=== PATIENT | male | born 1980 | race American Indian/Alaskan Native ===

== ENCOUNTER 2019-08-20 23:14 | Emergency (ER) | payer SELFPAY ==
[2019-08-20] MEDS ORDERED: ASPIRIN 325 MG TAB PO ONE (23:29)
--- NOTE | 2019-08-21 00:06 | XRay Report ---
CHEST 1 VIEW 11:44 PM INDICATION / CLINICAL INFORMATION: Chest Pain. Left chest pain radiating to the left arm and shoulder. COMPARISON: None available. FINDINGS: SUPPORT DEVICES: None. HEART / MEDIASTINUM: The heart size and pulmonary vasculature are normal. There is mild aortic tortuo sity without aneurysm. LUNGS / PLEURA: No significant pulmonary or pleural abnormality. No pneumothorax. ADDITIONAL FINDINGS: No significant additional findings. IMPRESSION: No acute findings. Signer Name: Chele Donis MD Signed: 08/21/2019 12:01 AM Workstation Name: [id number]
[2019-08-21 00:14] LABS: Eosinophils # (Auto) 0.1 K/mm3 (0.0-0.4); Eosinophils % (Auto) 3.4 % (0.0-4.3); Hematocrit 41.8 % (35.5-45.6); Hemoglobin 14.1 gm/dl (11.8-15.2); Lymphocytes # (Auto) 1.9 K/mm3 (1.2-5.4); Lymphocytes % (Auto) 46.5 % (13.4-35.0); Mean Corpuscular HGB Conc 34 % (32-34); Mean Corpuscular Volume 91 fl (84-94); Monocytes # (Auto) 0.4 K/mm3 (0.0-0.8); Monocytes % (Auto) 9.3 % (0.0-7.3); Platelet Count 256 K/mm3 (140-440); Red Blood Count 4.61 M/mm3 (3.65-5.03); Red Cell Distribution Width 13.4 % (13.2-15.2)
[2019-08-21 00:33] LABS: BUN/Creatinine Ratio 13; Blood Urea Nitrogen 15 mg/dL (9-20); Calcium 9.6 mg/dL (8.4-10.2); Hemolysis Index 10
[2019-08-21] MEDS ORDERED: amLODIPine 5 MG TAB PO ONE (02:32)
[2019-08-21] MEDS ORDERED: hydroCHLOROthiazide 25 MG TAB PO ONE (02:32)
--- NOTE | 2019-08-21 02:37 | Emergency Department Report ---
ED General Adult HPI - General Chief complaint: Chest Pain Stated complaint: LT SIDE CHEST PAIN LT ARM AND FINGER TINGLING Time Seen by Provider: 08/21/19 01:17 Source: patient Mode of arrival: Ambulatory Limitations: No Limitations - History of Present Illness Initial comments: The patient presents to the emergency department with a chief complaint of chest pain for the last 2-3 days. Patient describes the chest pain as a tightness sensation that radiates into his left arm. Patient also states over the last month he's been checking his blood pressure and is been extremely high. Patient denies abdominal pain, headache, shortness of breath. -: Gradual Location: chest Radiation: extremity Severity scale (0 -10): 2 Quality: other (tightness) Consistency: constant Improves with: none Worsens with: none Associated Symptoms: denies other symptoms Treatments Prior to Arrival: none - Related Data Previous Rx's Medication Instructions Recorded Last Taken Type amLODIPine [Norvasc] 10 mg PO DAILY #30 tab 08/21/19 Unknown Rx hydroCHLOROthiazide [Hctz] 12.5 mg PO QDAY #30 capsule 08/21/19 Unknown Rx Allergies Allergy/AdvReac Type Severity Reaction Status Date / Time cat dander Allergy Unknown Verified 08/20/19 23:19 ED Review of Systems ROS: Stated complaint: LT SIDE CHEST PAIN LT ARM AND FINGER TINGLING Other details as noted in HPI Comment: All other systems reviewed and negative Constitutional: denies: chills, fever Eyes: denies: eye pain, eye discharge, vision change ENT: denies: ear pain, throat pain Respiratory: denies: cough, shortness of breath, wheezing Cardiovascular: chest pain. denies: palpitations Endocrine: no symptoms reported Gastrointestinal: denies: abdominal pain, nausea, diarrhea Genitourinary: denies: urgency, dysuria Musculoskeletal: denies: back pain, joint swelling, arthralgia Skin: denies: rash, lesions Neurological: denies: headache, weakness, paresthesias Psychiatric: denies: anxiety, depression Hematological/Lymphatic: denies: easy bleeding, easy bruising ED Past Medical Hx - Past Medical History Previous Medical History?: No - Surgical History Past Surgical History?: Yes Additional Surgical History: abd hernia - Social History Smoking Status: Current Some Day Smoker Substance Use Type: None - Medications Home Medications: Home Medications Medication Instructions Recorded Confirmed Last Taken Type amLODIPine [Norvasc] 10 mg PO DAILY #30 tab 08/21/19 Unknown Rx hydroCHLOROthiazide [Hctz] 12.5 mg PO QDAY #30 capsule 08/21/19 Unknown Rx ED Physical Exam - General Limitations: No Limitations General appearance: alert, in no apparent distress - Head Head exam: Present: atraumatic, normocephalic - Eye Eye exam: Present: normal appearance, PERRL, EOMI - ENT ENT exam: Present: mucous membranes moist - Neck Neck exam: Present: normal inspection - Respiratory Respiratory exam: Present: normal lung sounds bilaterally. Absent: respiratory distress - Cardiovascular Cardiovascular Exam: Present: regular rate, normal rhythm. Absent: systolic murmur, diastolic murmur, rubs, gallop - GI/Abdominal GI/Abdominal exam: Present: soft, normal bowel sounds. Absent: distended, tenderness - Rectal Rectal exam: Present: deferred - Extremities Exam Extremities exam: Present: normal inspection - Back Exam Back exam: Present: normal inspection - Neurological Exam Neurological exam: Present: alert, oriented X3, CN II-XII intact. Absent: motor sensory deficit - Psychiatric Psychiatric exam: Present: normal affect, normal mood - Skin Skin exam: Present: warm, dry, intact, normal color. Absent: rash ED Course Vital Signs 08/20/19 08/20/19 23:21 23:23 Temperature 98.4 F Pulse Rate 96 H Respiratory 18 Rate Blood Pressure 230/144 Blood Pressure 220/120 [Right] O2 Sat by Pulse 98 Oximetry ED Medical Decision Making - Lab Data Result diagrams: 08/20/19 23:53 08/20/19 23:53 Lab Results 08/20/19 08/20/19 08/21/19 Range/Units 23:53 23:53 01:56 WBC 4.2 L (4.5-11.0) K/mm3 RBC 4.61 (3.65-5.03) M/mm3 Hgb 14.1 (11.8-15.2) gm/dl Hct 41.8 (35.5-45.6) % MCV 91 (84-94) fl MCH 31 (28-32) pg MCHC 34 (32-34) % RDW 13.4 (13.2-15.2) % Plt Count 256 (140-440) K/mm3 Lymph % (Auto) 46.5 H (13.4-35.0) % [place] % (Auto) 9.3 H (0.0-7.3) % Eos % (Auto) 3.4 (0.0-4.3) % Baso % (Auto) 1.0 (0.0-1.8) % Lymph # 1.9 (1.2-5.4) K/mm3 [place] # 0.4 (0.0-0.8) K/mm3 Eos # 0.1 (0.0-0.4) K/mm3 Baso # 0.0 (0.0-0.1) K/mm3 Seg Neutrophils % 39.8 L (40.0-70.0) % Seg Neutrophils # 1.7 L (1.8-7.7) K/mm3 Sodium 142 (137-145) mmol/L Potassium 4.2 (3.6-5.0) mmol/L Chloride 102.3 (98-107) mmol/L Carbon Dioxide 27 (22-30) mmol/L Anion Gap 17 mmol/L BUN 15 (9-20) mg/dL Creatinine 1.2 (0.8-1.5) mg/dL Estimated GFR > 60 ml/min BUN/Creatinine Ratio 13 % Glucose 94 (75-100) mg/dL Calcium 9.6 (8.4-10.2) mg/dL Troponin T < 0.010 < 0.010 (0.00-0.029) ng/mL - EKG Data -: EKG Interpreted by Me EKG shows normal: sinus rhythm Rate: normal - Radiology Data Radiology results: report reviewed - Medical Decision Making Discussed results with the patient his Discussed blood pressure readings and the plan of care Critical care attestation.: If time is entered above; I have spent that time in minutes in the direct care of this critically ill patient, excluding procedure time. ED Disposition Clinical Impression: Hypertension, Nonspecific chest pain Disposition: DC-01 TO HOME OR SELFCARE Is pt being admited?: No Does the pt Need Aspirin: No Condition: Stable Instructions: Hypertension (ED), Chest Pain (ED) Additional Instructions: return if worse Referrals: PRIMARY CARE, [Primary Care Provider] - 3-5 Days [facility] [Provider Group] - 3-5 Days [facility] [Provider Group] - 3-5 Days [facility] [place]] - 3-5 Days [facility] [Provider Group] - 3-5 Days ANTONETTE BARR MD [Staff Physician] - 3-5 Days Time of Disposition: 02:36
[2019-08-21 05:36] VITALS: BP 161/107
== END 2019-08-21 05:15 | disposition home or self-care (01) ==
LOC: ED 23:14
DX: R07.89 Other chest pain (principal); I10 Essential (primary) hypertension; F17.200 Nicotine dependence, unspecified, uncomplicated; Z79.899 Other long term (current) drug therapy; Z91.09 Other allergy status, other than to drugs and biological substances
CPT/HCPCS: 36415; 71045; 80048; 84484; 85025; 93005; 93010